=== PATIENT | female | born 1945 | race Asian ===

== ENCOUNTER 2017-05-13 13:45 | Emergency (ER) | payer OTHER ==
[~2017-05-13] VITALS: Ht 154.9 cm; Wt 79.0 kg
[2017-05-13 13:49] VITALS: Ht 154.9 cm; Wt 79.0 kg
[2017-05-13] MEDS ORDERED: CEPH-443 PO (15:45)
[2017-05-13] MEDS ORDERED: ACET500C5 PO (15:45)
--- NOTE | 2017-05-13 15:49 | ERD ---
ER Documentation Chief Complaint Date/Time DATE: 05/13/17 TIME: 15:47 Chief Complaint RIGHT CHEEK SWELLING POSSIBLE DENTAL PROBLEM HPI 8-year-old female presents with a one-day history of some swelling and pain in the right lower dental area. She possibly has some poor dentition. She denies fevers, vomiting, difficult Swallowing or difficulty breathing ROS All systems reviewed and are negative except as per history of present illness. Medications Home Meds Active Scripts Acetaminophen* (Tylophen*) 500 Mg Capsule, 1 CAP PO Q6H Y for PAIN AND OR ELEVATED TEMP, #20 CAP Prov:SHEREE NESS MD 05/13/17 Cephalexin* (Keflex*) 500 Mg Capsule, 500 MG PO QID for 10 Days, CAP Prov:SHEREE NESS MD 05/13/17 Allergies Allergies: Coded Allergies: hydrochlorothiazide (Verified Allergy, Unknown, 05/13/17) PMhx/Soc History of Surgery: Yes (CARPEL TUNNEL ) Anesthesia Reaction: No Hx Neurological Disorder: No Hx Respiratory Disorders: Yes (SLEEP APNEA ) Hx Cardiac Disorders: Yes (HTN) Hx Psychiatric Problems: No Hx Miscellaneous Medical Probl: Yes (VERTIGO , GOUT ) Hx Alcohol Use: No Hx Substance Use: No Hx Tobacco Use: No Smoking Status: Never smoker Physical Exam Vitals Vital Signs Date Time Temp Pulse Resp B/P Pulse Ox O2 Delivery O2 Flow Rate FiO2 05/13/17 13:49 97.6 94 20 178/80 95 Physical Exam Const: []Alert, [id number]. Head: Atraumatic Eyes: Normal Conjunctiva ENT: Normal External Ears, Nose and Mouth.Right lower molars are significant for evidence of dental work. There is no open caries. There is some tenderness and swelling at the base of the right fourth molar. There is no appreciable discharge. Airways patent. There is no facial erythema or induration. Neck: Full range of motion..~ No meningismus. Resp: Clear to auscultation bilaterally Cardio: Regular rate and rhythm, no murmurs Abd: Soft, non tender, non distended. Normal bowel sounds Skin: No petechiae or rashes Back: No midline or flank tenderness Ext: No cyanosis, or edema Neur: Awake and alert Psych: Normal Mood and Affect Results 24 hrs Current Medications Medications (Trade) Dose Ordered Sig/Jaskaran Route PRN Reason Start Time Stop Time Status Last Admin Dose Admin Cephalexin (Keflex) 500 mg ONCE ONCE PO 05/13/17 16:00 05/13/17 16:01 Acetaminophen (Tylenol Tab) 650 mg ONCE ONCE PO 05/13/17 16:00 05/13/17 16:01 Procedures/MDM Patient presents with signs and symptoms are right dental infection with early abscess without evidence of facial cellulitis, no colitis, pericarditis, airway obstruction, evidence for further study today. She was given Keflex and Tylenol here and will treated with Keflex and Tylenol and 6 for dental follow- up and return precautions. The patient was stable with no new complaints during the ER course. Clinically, there is no current evidence to suggest meningitis, sepsis, acute abdomen, pneumonia, acute coronary syndrome, pulmonary embolism, or any other emergent condition appearing to require further evaluation or hospitalization. The patient should certainly return for any new or worsening symptoms per the aftercare instructions. They should otherwise follow-up with her primary care doctor for reevaluation this week. Departure Diagnosis: Primary Impression: Abscess, dental Condition: Stable Patient Instructions: Dental Abscess Referrals: [facility] ([facility] walk in clinic) Additional Instructions: See dentist for follow-up. Recheck otherwise for new or worsening symptoms have not fevers, difficulty swallowing, difficulty breathing. SHEREE NESS MD May 13, 2017 15:49
[2017-05-13 15:55] VITALS: BP 165/80; PULSE 65; RESP 20
[2017-05-13] MEDS ORDERED: CEPHALEXIN 500 MG CAP PO ONE (16:00)
[2017-05-13] MEDS ORDERED: ACETAMINOPHEN 325 MG TAB PO ONE (16:00)
[2017-05-14] MEDS ORDERED: CLIN-73 PO (11:38)
== END 2017-05-13 15:56 | disposition home or self-care (01) ==
LOC: FTE 13:45
DX: K04.7 Periapical abscess without sinus (principal); I10 Essential (primary) hypertension
CPT/HCPCS: 99283

== ENCOUNTER 2017-05-14 08:53 | Emergency (ER) | payer OTHER ==
[~2017-05-14] VITALS: Ht 154.9 cm; Wt 77.0 kg
[~2017-05-14 08:53] MED LIST: ACET500C5 PO; CEPH-443 PO
[2017-05-14 08:58] VITALS: Ht 154.9 cm; Wt 77.0 kg
[2017-05-14] MEDS ORDERED: KETOROLAC 30 MG INJ IV STA (10:02)
[2017-05-14] MEDS ORDERED: SOD CHLORIDE 0.9% 1,000 ML IV STA (10:02)
[2017-05-14] MEDS ORDERED: CLINDAMYCIN 600 MG/D5W (PMX) 50 ML IVPB SCH (10:30)
[2017-05-14 10:36] LABS: BASOPHIL # 0.1 10^3/ul (0.0-0.1); BASOPHILS % 0.5 % (0.0-2.0); EOSINOPHILS # 0.4 10^3/ul (0.0-0.5); EOSINOPHILS % 3.6 % (0.0-7.0); HEMATOCRIT 38.5 % (37.0-47.0); HEMOGLOBIN 12.6 g/dl (12.0-16.0); LYMPHOCYTES # 1.5 10^3/ul (0.8-2.9); LYMPHOCYTES % 14.3 % (15.0-51.0); MEAN CORPUSCULAR HEMOGLOBIN 29.3 pg (29.0-33.0); MEAN CORPUSCULAR HGB CONC 32.7 g/dl (32.0-37.0); MEAN CORPUSCULAR VOLUME 89.5 fl (82.0-101.0); MEAN PLATELET VOLUME 10.8 fl (7.4-10.4); MONOCYTE # 0.9 10^3/ul (0.3-0.9); MONOCYTES % 8.6 % (0.0-11.0); NEUTROPHILS % 72.8 % (39.0-77.0); PLATELET COUNT 254 10^3/UL (140-415); RED CELL DISTRIBUTION WIDTH 13.7 % (11.5-14.5); WHITE BLOOD COUNT 10.4 10^3/ul (4.8-10.8)
[2017-05-14 10:53] LABS: ALBUMIN 4.1 g/dl (3.3-4.9); ALBUMIN/GLOBULIN RATIO 1.13; BILIRUBIN,INDIRECT 0.4 mg/dl (0-1.1); BILIRUBIN,TOTAL 0.4 mg/dl (0.2-1.3); CALCIUM 9.2 mg/dl (8.4-10.2); CREATININE 0.93 mg/dl (0.44-1.00); POTASSIUM 4.2 mmol/L (3.5-5.1); TOTAL PROTEIN 7.7 g/dl (6.1-8.1)
[2017-05-14] MEDS ORDERED: SOD CHLORIDE 0.9% 100 ML ONE (11:04)
[2017-05-14] MEDS ORDERED: IOHEXOL 300MG/ML 150 ML BTL ONE (11:04)
--- NOTE | 2017-05-14 11:34 | RADRPT ---
PROCEDURE: CT facial bones with intravenous contrast CLINICAL INDICATION: Right facial swelling. COMPARISON: None relevant listed. TECHNIQUE: Axial images of the facial bones was obtained after the uneventful administration of 80 m L Omnipaque-300 intravenous contrast. Coronal and sagittal re-formats. DOSE: The estimated administered radiation dose was CTDI vol = 54 mGy. DLP = 1043 mGy-cm. One or mo re of the following dose reduction techniques were used: automated exposure control, adjustment of t he mA and/or kV according to patient size, or use of iterative reconstruction. FINDINGS: Soft tissues: Marked thickening of the right side of the platysma muscle with overlying and underlyi ng soft tissue edema and inflammation involving the subcutaneous fat, submandibular space, and masti cator space. There are multiple mildly enlarged level I lymph nodes bilaterally. No drainable flui d collection or abscess identified. Mild edema within both submandibular glands. No sialolithiasis identified. No dental caries or gian apical lucencies identified. Bones: No fracture. Moderate degenerative changes at C5-C6 and C6-C7 Orbits: Normal. Paranasal sinuses: Mucous retention cyst or polyp in the left maxillary sinus. Mild ethmoid sinus m ucosal thickening Mastoid air cells: Clear. Visualized brain: Normal. Additional comment: Mild calcified atherosclerotic arterial plaque. IMPRESSION: Cellulitis involving the right subcutaneous fat, platysma muscle, submandibular space, and masticato r space. No discrete abscess identified. RPTAT: PP Physician Conchis Date Time Electronically viewed and signed by Physician Conchis on 05/14/2017 11:34 /
[2017-05-14] MEDS ORDERED: CLIN-73 PO (11:38)
--- NOTE | 2017-05-14 12:12 | ERD ---
ER Documentation Chief Complaint Date/Time DATE: 05/14/17 TIME: 12:09 Chief Complaint RT SIDE FACE SWELLING FROM DENTAL PAIN HPI 71-year-old female coming in complaining of swelling to her right lower jawline and dental pain. Patient was seen yesterday in the ER and given oral Keflex however she has not followed up and filled her prescription for antibiotics. Denies fever. Denies troubles breathing. Denies trouble swallowing. Denies neck pain. ROS All systems reviewed and are negative except as per history of present illness. Medications Home Meds Active Scripts Clindamycin Hcl* (Clindamycin Hcl*) 300 Mg Capsule, 450 MG PO TID for 10 Days, CAP Prov:JEREMY REDDY PA-C 05/14/17 Acetaminophen* (Tylophen*) 500 Mg Capsule, 1 CAP PO Q6H Y for PAIN AND OR ELEVATED TEMP, #20 CAP Prov:SHEREE NESS MD 05/13/17 Cephalexin* (Keflex*) 500 Mg Capsule, 500 MG PO QID for 10 Days, CAP Prov:SHEREE NESS MD 05/13/17 Allergies Allergies: Coded Allergies: hydrochlorothiazide (Verified Allergy, Unknown, 05/13/17) PMhx/Soc History of Surgery: Yes (CARPEL TUNNEL ) Anesthesia Reaction: No Hx Neurological Disorder: No Hx Respiratory Disorders: Yes (SLEEP APNEA ) Hx Cardiac Disorders: Yes (HTN) Hx Psychiatric Problems: No Hx Miscellaneous Medical Probl: Yes (VERTIGO , GOUT ) Hx Alcohol Use: No Hx Substance Use: No Hx Tobacco Use: No Physical Exam Vitals Vital Signs Date Time Temp Pulse Resp B/P Pulse Ox O2 Delivery O2 Flow Rate FiO2 05/14/17 08:58 99.2 78 18 125/64 97 Physical Exam GENERAL: The patient is well-appearing, well-nourished, in no acute distress HEENT: Poor dentition noted throughout. No palpable abscess felt within the oral mucosa. Swelling noted to the right lower jawline. Oropharynx patent. Uvula midline. No tonsillar swelling. No meningismus. No trismus NECK: C-spine is soft and supple. There is no meningismus. There is no cervical lymphadenopathy. No JVD. No bruits. No goiter. CHEST: Clear to auscultation bilaterally. There are no rales, wheezes or rhonchi. HEART: Regular rate and rhythm. No murmurs, clicks, rubs or gallops. No S3 or S4. SKIN: Erythema noted to the right jawline. Mild induration and no fluctuance. Result Diagram: 05/14/17 1014 05/14/17 1014 Results 24 hrs Laboratory Tests Test 05/14/17 10:14 White Blood Count 10.410^3/ul Red Blood Count 4.3010^6/ul Hemoglobin 12.6g/dl Hematocrit 38.5% Mean Corpuscular Volume 89.5fl Mean Corpuscular Hemoglobin 29.3pg Mean Corpuscular Hemoglobin Concent 32.7g/dl Red Cell Distribution Width 13.7% Platelet Count 67261^3/UL Mean Platelet Volume 10.8fl Neutrophils % 72.8% Lymphocytes % 14.3% Monocytes % 8.6% Eosinophils % 3.6% Basophils % 0.5% Nucleated Red Blood Cells % 0.0/100WBC Neutrophils # (Manual) 7.510^3/ul Lymphocytes # 1.510^3/ul Monocytes # 0.910^3/ul Eosinophils # 0.410^3/ul Basophils # 0.110^3/ul Nucleated Red Blood Cells # 0.010^3/ul Sodium Level 141mmol/L Potassium Level 4.2mmol/L Chloride Level 103mmol/L Carbon Dioxide Level 28mmol/L Anion Gap 14 Blood Urea Nitrogen 14mg/dl Creatinine 0.93mg/dl Glucose Level 95mg/dl Calcium Level 9.2mg/dl Total Bilirubin 0.4mg/dl Direct Bilirubin 0.00mg/dl Indirect Bilirubin 0.4mg/dl Aspartate Amino Transf (AST/SGOT) 27IU/L Alanine Aminotransferase (ALT/SGPT) 31IU/L Alkaline Phosphatase 67IU/L Total Protein 7.7g/dl Albumin 4.1g/dl Globulin 3.60g/dl Albumin/Globulin Ratio 1.13 Current Medications Medications (Trade) Dose Ordered Sig/Jaskaran Route PRN Reason Start Time Stop Time Status Last Admin Dose Admin Sodium Chloride (NS) 1,000 ml @ 1,000 mls/hr Q1H STAT IV 05/14/17 10:02 05/14/17 11:01 DC 05/14/17 10:23 Ketorolac Tromethamine 30 mg 30 mg ONCE STAT IV 05/14/17 10:02 05/14/17 10:05 DC 05/14/17 10:23 Clindamycin HCl/ Dextrose (Cleocin 600 Mg/ D5W (Pmx)) 50 ml @ 50 mls/hr ONCE IVPB 05/14/17 10:30 05/14/17 11:29 DC 05/14/17 10:23 IV Flush 10 ml 10 ml STK-MED ONCE .ROUTE 05/14/17 11:04 05/14/17 11:05 DC 05/14/17 11:22 Sodium Chloride (NS) 100 ml @ ud STK-MED ONCE .ROUTE 05/14/17 11:04 05/14/17 11:05 DC 05/14/17 11:23 Iohexol (Omnipaque 300mg/ ml) 150 ml STK-MED ONCE .ROUTE 05/14/17 11:04 05/14/17 11:05 DC 05/14/17 11:23 Procedures/MDM DIAGNOSTIC IMAGING REPORT Patient: THOMAS DE JESUS : 1945 Age: 71 Sex: F MR #: [id number] DOS: 05/14/17 1002 Ordering MD: ERIC REDDY PA-C Location: [facility] Room/Bed: PROCEDURE: CT facial bones with intravenous contrast CLINICAL INDICATION: Right facial swelling. COMPARISON: None relevant listed. TECHNIQUE: Axial images of the facial bones was obtained after the uneventful administration of 80 mL Omnipaque-300 intravenous contrast. Coronal and sagittal re-formats. DOSE: The estimated administered radiation dose was CTDI vol = 54 mGy. DLP = 1043 mGy-cm. One or more of the following dose reduction techniques were used: automated exposure control, adjustment of the mA and/or kV according to patient size, or use of iterative reconstruction. FINDINGS: Soft tissues: Marked thickening of the right side of the platysma muscle with overlying and underlying soft tissue edema and inflammation involving the subcutaneous fat, submandibular space, and plumbing inspector space. There are multiple mildly enlarged level I lymph nodes bilaterally. No drainable fluid collection or abscess identified. Mild edema within both submandibular glands. No sialolithiasis identified. No dental caries or gian apical lucencies identified. Bones: No fracture. Moderate degenerative changes at C5-C6 and C6-C7 Orbits: Normal. Paranasal sinuses: Mucous retention cyst or polyp in the left maxillary sinus. Mild ethmoid sinus mucosal thickening Mastoid air cells: Clear. Visualized brain: Normal. Additional comment: Mild calcified atherosclerotic arterial plaque. IMPRESSION: Cellulitis involving the right subcutaneous fat, platysma muscle, submandibular space, and plumbing inspector space. No discrete abscess identified. ER Course: 600mg IV Clindamycin given in ED 1 L NS given in ED Toradol given in ED MDM: 71-year-old female coming in complaining of dental abscess. I do not feel that there is indication for admission as there is no obvious abscess seen on CT scan. Patient's airway is patent and patient does not show signs of respiratory distress. Patient will be discharged with clindamycin and told to follow-up at pharmacy immediately after discharge to fill medication. Patient plans to follow-up with dentist within the next few days. Patient is given strict ER precautions. I have low suspicion for sepsis this patient is nontoxic -appearing and vitals are stable. Departure Diagnosis: Primary Impression: Dental abscess Condition: Stable Patient Instructions: Dental Abscess W/ Facial Cellulitis Referrals: [facility] YOU HAVE RECEIVED A MEDICAL SCREENING EXAM AND THE RESULTS INDICATE THAT YOU DO NOT HAVE A CONDITION THAT REQUIRES URGENT TREATMENT IN THE EMERGENCY DEPARTMENT. FURTHER EVALUATION AND TREATMENT OF YOUR CONDITION CAN WAIT UNTIL YOU ARE SEEN IN YOUR DOCTORS OFFICE WITHIN THE NEXT 1-2 DAYS. IT IS YOUR RESPONSIBILITY TO MAKE AN APPOINTMENT FOR FOLOW-UP CARE. IF YOU HAVE A PRIMARY DOCTOR --you should call your primary doctor and schedule an appointment IF YOU DO NOT HAVE A PRIMARY DOCTOR YOU CAN CALL OUR PHYSICIAN REFERRAL HOTLINE AT IF YOU CAN NOT AFFORD TO SEE A PHYSICIAN YOU CAN CHOSE FROM THE FOLLOWING [facility] [address] [facility] [address] [facility] [address] [facility] [address] [facility] [address] [facility]. [facility]. [address] [place] Additional Instructions: FOLLOW UP WITH YOUR PRIMARY CARE PHYSICIAN TOMORROW.Return to this facility if you are not improving as expected. JEREMY REDDY PA-C May 14, 2017 12:12
== END 2017-05-14 12:24 | disposition home or self-care (01) ==
LOC: FTE 08:53
DX: K04.7 Periapical abscess without sinus (principal); I10 Essential (primary) hypertension
CPT/HCPCS: 36415; 70486; 80053; 85025; 96374; 96375; 99285; J1885; J7030; Q9967